=== PATIENT | female | born 1980 | race African-American/Black ===

== ENCOUNTER 2018-03-12 00:41 | Emergency (ER) ==
[2018-03-12 00:54] VITALS: BP 133/85; TEMP 98.7; BMI 31.6
--- NOTE | 2018-03-12 01:02 | ED.PDOC ---
General ED Provider: Dr. SUZETTE BAEZA MD Chief Complaint: Multiple Trauma Stated Complaint: neck and butytock pain Time Seen by Physician: 01:00 Mode of Arrival: Walk-In Information Source: Patient Exam Limitations: No limitations Primary Care Provider: ROSAURA SAMUEL Referred to ED by: Other (fall at work) Nursing and Triage Documentation Reviewed and Agree: Yes Does patient meet sepsis criteria?: No If yes, has appropriate treatment been initiated?: Yes System Inflammatory Response Syndrome: Not Applicable Sepsis Protocol: For patient's 13 years and over: Temp is 96.8 and below OR 101 and greater Pulse >90 BPM Resp >20/minute Acutely Altered Mental Status Are patient's symptoms suggestive of a new infection, such as: -Pneumonia -Skin, Soft Tissue -Endocarditis -UTI -Bone, Joint Infection -Implantable Device -Acute Abdominal Infection -Wound Infection -Meningitis -Blood Stream Catheter Infection -Unknown Musculoskeletal Complaint Exam - Neck Pain Complaint/Exam Mechanism of Injury: Reports: Trauma, Other (fall at work) Symptoms Are: Resolved Episodes Lasting: Seconds Initial Severity: Mild Current Severity: None Character: Reports: Unable to describe Aggravating: Reports: None Alleviating: Reports: None Related History: Reports: Occupational injury Meningitis Risk Factors: Reports: None Cervical Spine Injury Risk Factors: Reports: None Carotid Bruit Present: Yes Review of Systems - Review Of Systems Constitutional: Reports: No symptoms Eyes: Reports: No symptoms Ears, Nose, Mouth, Throat: Reports: No symptoms Respiratory: Reports: No symptoms Cardiac: Reports: No symptoms GI: Reports: No symptoms : Reports: No symptoms Musculoskeletal: Reports: Muscle pain Skin: Reports: No symptoms Neurological: Reports: No symptoms Endocrine: Reports: No symptoms Hematologic/Lymphatic: Reports: No symptoms All Other Systems: Reviewed and Negative Past Medical History - Past Medical History Previously Healthy: Yes Endocrine: Reports: None Cardiovascular: Reports: None Respiratory: Reports: None Hematological: Reports: None Gastrointestinal: Reports: None Genitourinary: Reports: None Neuro/Psych: Reports: None Musculoskeletal: Reports: None Cancer: Reports: None Last Menstrual Period: 3 DAYS AGO - Surgical History General Surgical History: Reports: None - Family History Family History: Reports: None - Social History Smoking Status: Never smoker Hx Substance Use: No Alcohol Screening: None - Immunizations Tetanus Shot up to Date: Yes Physical Exam - Physical Exam Appearance: Well-appearing, No pain distress, Well-nourished Ill-appearing: None Pain Distress: Mild Eyes: NAIN, EOMI, Conjunctiva clear ENT: Ears normal, Nose normal, Oropharynx normal Respiratory: Airway patent, Breath sounds clear, Breath sounds equal, Respirations nonlabored Cardiovascular: RRR, Pulses normal, No rub, No murmur GI/: Soft, Nontender, No masses, Bowel sounds normal, No Organomegaly Musculoskeletal: Limited ROM Skin: Warm, Dry, Normal color Neurological: Sensation intact, Motor intact, Reflexes intact, Cranial nerves intact, Alert, Oriented Psychiatric: Affect appropriate, Mood appropriate Critical Care Note - Critical Care Note Total Time (mins): 0 Course - Course Orders, Labs, Meds: Orders Category Date Time Status EKG-(ED ONLY) Stat CARDIO 03/12/18 01:07 Completed C collar [ED IMMOBILIZATION] .ONCE EMERGENCY 03/12/18 01:05 Active Ketorolac Tromethamine [Toradol] MEDS 03/12/18 01:08 Discontinued 60 mg IM ONCE STA CERVICAL SPINE, 2 OR 3 VIEWS Stat RADS 03/12/18 01:06 Completed SACRUM & COCCYX Stat RADS 03/12/18 01:08 Completed Medications Discontinued Medications Generic Name Dose Route Start Last Admin Trade Name Freq PRN Reason Stop Dose Admin Ketorolac Tromethamine 60 mg 03/12/18 01:08 03/12/18 01:24 Toradol IM 03/12/18 01:09 Not Given ONCE STA Vital Signs: Temp Pulse Resp BP Pulse Ox 03/12/18 00:42 98.7 F 80 20 133/85 98 Departure - Departure Time of Disposition: 01:00 Disposition: HOME SELF-CARE Discharge Problem: Syncope Instructions: Syncope (ED) Condition: Good Pt referred to PMD for follow-up: Yes IPMP verified?: No Additional Instructions: FOLLOW UP WITH PRIMARY CARE PHYSICIAN. REST AND INCREASE FLUID INTAKE. Allergies/Adverse Reactions: Allergies cephalexin [From Keflex] Adverse Reaction (Verified 03/12/18 00:52) Swelling latex Adverse Reaction (Verified 03/12/18 00:52) Rash Home Medications: Ambulatory Orders Cyanocobalamin (Vitamin B-12) [Vitamin B12] 5,000 mcg PO DAILY 03/12/18 L.acidoph,Paracasei, B.lactis [Probiotic] 1 each PO DAILY 03/12/18 Multivitamin [Multiple Vitamins] 1 each PO DAILY 03/12/18 Omeprazole [Prilosec] 20 mg PO QDAC 03/12/18 Vitamin B-1 [Thiamine] 100 mg PO DAILY 03/12/18 Transfer Form Completed: No Disposition Discussed With: Patient
[2018-03-12] MEDS ORDERED: TORADOL IM STA (01:08)
--- NOTE | 2018-03-12 01:49 | DI ---
EXAM: Cervical spine, three views, 03/12/2018 HISTORY: Neck pain COMPARISON: 11/28/2015 FINDINGS / IMPRESSION: Normal anatomic alignment is maintained. The vertebral bodies appear intact. The facet joints align normally. The prevertebral soft tissues appear within normal limits. There is no fracture or subluxation at any level. No acute osseous abnormalities of the cervical spine.
--- NOTE | 2018-03-12 01:56 | DI ---
EXAM: Sacrum/coccyx, two views, 03/12/2018 HISTORY: Buttocks pain COMPARISON: None. FINDINGS / IMPRESSION: Normal anatomic alignment is maintained. The visualized osseous structures a ppear intact. There is no evidence of fracture or subluxation. No acute osseous abnormality.
== END 2018-03-12 02:30 | disposition home or self-care (01) ==
LOC: ED 00:41
DX: R55 Syncope and collapse (principal); M54.2 Cervicalgia; M54.5 Low back pain; W19.XXXA Unspecified fall, initial encounter; Y99.0 Civilian activity done for income or pay
CPT/HCPCS: 82962; 93005; 93010; 99284